=== PATIENT | female | born 1935 | race Caucasian/White ===

== ENCOUNTER 2022-09-17 19:03 | Emergency (ER) | payer MEDICARE ==
[~2022-09-17] VITALS: Ht 172.7 cm; Wt 77.1 kg
[2022-09-17 22:30] LABS: BASOPHILS % (AUTO) 0.5 % (0.0-5.0); EOSINOPHILS % (AUTO) 1.4 % (0.0-8.0); HEMATOCRIT 42.7 % (36-48); LYMPHOCYTES % (AUTO) 25.9 % (21.0-51.0); MEAN CORPUSCULAR HGB CONC 34.4 g/dL (32.0-36.0); MEAN CORPUSCULAR VOLUME 90.1 fL (79-99); MONOCYTES % (AUTO) 9.8 % (3.0-13.0); NEUTROPHILS % (AUTO) 62.2 % (40.0-77.0); PLATELET COUNT (AUTO) 232 K/uL (130-400); RED BLOOD CELL COUNT(AUTO) 4.74 MIL/uL (4.00-5.50); RED CELL DISTRIBUTION WIDTH 12.6 % (11.0-15.5); WHITE BLOOD COUNT (AUTO) 5.6 K/uL (4.8-10.8)
[2022-09-17 22:36] VITALS: BP 159/80
[2022-09-17 22:53] LABS: INR 1.11 (0.85-1.15)
[2022-09-17 22:55] LABS: PARTIAL THROMBOPLASTIN TIME 31.2 SEC (26.3-35.5)
[2022-09-17 23:03] LABS: CREATININE 0.6 mg/dL (0.5-1.5); POTASSIUM 3.3 mmol/L (3.5-5.1)
[2022-09-17 23:08] LABS: ALBUMIN 3.9 g/dL (3.5-5.0); TOTAL PROTEIN, SERUM 7.4 g/dL (6.0-8.3)
== END 2022-09-17 22:46 | disposition home or self-care (01) ==
LOC: EDH 19:03
DX: H33.21 Serous retinal detachment, right eye (principal); J45.909 Unspecified asthma, uncomplicated; I10 Essential (primary) hypertension
CPT/HCPCS: 36415; 70450; 80053; 85025; 85610; 85730; 93005